=== PATIENT | male | born 1945 | race Caucasian/White ===

== ENCOUNTER 2020-02-27 07:59 | Outpatient (CLI) | payer MEDICARE, SELFPAY ==
--- NOTE | ~2020-02-27 | US_ITS ---
EXAMINATION: US aorta DATE: 02/27/2020 09:12 CDT INDICATION: Abdominal aortic aneurysm TECHNIQUE: Grayscale, color Doppler, and pulsed Doppler images of the aorta and common iliac arteries were obtained. COMPARISON: 02/28/2019 FINDINGS: There is a 3.7 x 3.6 cm infrarenal aortic aneurysm with fusiform appearance, unchanged from prior exa mination. Right common iliac artery measures 1.7 cm. Left common iliac artery measures 1.6 cm. Distal aspect of the left iliac artery measures 2.9 x 2.2 cm. IMPRESSION: 1. Stable fusiform infrarenal abdominal aortic aneurysm measuring 3.7 x 3.6 cm. 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 Reviewed, dictated and finalized at location A.
== END 2020-02-27 08:00 | disposition home or self-care (01) ==
LOC: ANHIMG 08:05
PROVIDERS: PCP Family Medicine; Visit Provider Family Medicine
DX: I71.4 Abdominal aortic aneurysm, without rupture (principal); I72.3 Aneurysm of iliac artery
CPT/HCPCS: 76775

== ENCOUNTER 2021-02-18 08:23 | Outpatient (CLI) | payer MEDICARE, SELFPAY ==
--- NOTE | ~2021-02-18 | US_ITS ---
EXAMINATION: US aorta DATE: 02/18/2021 08:53 INDICATION: Abdominal aortic aneurysm TECHNIQUE: Grayscale, color Doppler, and pulsed Doppler images of the aorta and common iliac arteries were obtained. COMPARISON: 02/27/2020 FINDINGS: Maximum vascular dimensions are as follows: Proximal aorta: 2.9 cm Mid aorta: 2.5 cm Distal aorta: 3.7 cm Right common iliac artery: 2.0 cm Left common iliac artery: 2.7 cm There is a 3.7 x 3.4 cm fusiform infrarenal abdominal aortic aneurysm a 2.7 x 2.2 cm aneurysm of the distal left common iliac artery is also noted. IMPRESSION: 1. Fusiform infrarenal abdominal aortic aneurysm and fusiform left iliac artery aneurysm without sign ificant change Reviewed, dictated and finalized at location A. IMPRESSION: 1. Fusiform infrarenal abdominal aortic aneurysm and fusiform left iliac artery aneurysm without significant change
== END 2021-02-18 08:24 | disposition home or self-care (01) ==
LOC: ANHIMG 08:27
PROVIDERS: PCP Family Medicine; Visit Provider Family Medicine
DX: I71.4 Abdominal aortic aneurysm, without rupture (principal)
CPT/HCPCS: 76775

== ENCOUNTER 2022-02-17 08:49 | Outpatient (CLI) | payer MEDICARE, SELFPAY ==
--- NOTE | ~2022-02-17 | US_ITS ---
EXAMINATION: US aorta DATE: 02/17/2022 09:42 INDICATION: Abdominal aortic aneurysm TECHNIQUE: Grayscale, color Doppler, and pulsed Doppler images of the aorta and common iliac arteries were obtained. COMPARISON: None. FINDINGS: The proximal aorta measures 3.0 cm. The mid aorta measures 2.8 cm. Fusiform infrarenal abdominal aort ic aneurysm measuring up to 3.6 cm in maximal diameter tapering to 3.0 cm at the bifurcation. The rig ht common iliac artery measures 2.0 cm. The left common iliac artery measures 2.0 cm. IMPRESSION: 1. No significant interval change in a fusiform infrarenal abdominal aortic aneurysm measuring up to 3.6 cm in the current study. Reviewed, dictated and finalized at location B. IMPRESSION: 1. No significant interval change in a fusiform infrarenal abdominal aortic ane urysm measuring up to 3.6 cm in the current study.
== END 2022-02-17 08:50 | disposition home or self-care (01) ==
PROVIDERS: PCP Family Medicine; Visit Provider Family Medicine
DX: I71.4 Abdominal aortic aneurysm, without rupture (principal)
CPT/HCPCS: 76775

== ENCOUNTER 2023-02-04 10:14 | Outpatient (CLI) | payer MEDICARE, SELFPAY ==
--- NOTE | ~2023-02-04 | US_ITS ---
US aorta DATE: 02/04/2023 10:58 INDICATION: Abdominal aortic aneurysm follow-up TECHNIQUE: Real-time imaging, color flow imaging of abdominal aortic aneurysm COMPARISON: 02/17/2022 abdominal aortic ultrasound FINDINGS: The examination is limited due to overlying bowel. There is an infrarenal fusiform abdominal aortic aneurysm. The proximal abdominal aorta measures 2.7 x 2.8 x 2.6 cm. Mid abdominal aorta measures 2.3 x 2.2 x 2 cm. Distal abdominal aorta measures 2.5 x 3.4 x 4.2 cm. Proximal right common iliac artery measures 2.0 cm, left proximal common iliac artery 1.7 cm IMPRESSION: Up to approximately 4.2 cm fusiform infrarenal abdominal aortic aneurysm Reviewed, dictated and finalized at Location A. Reviewed, dictated and finalized at location L. IMPRESSION: Up to approximately 4.2 cm fusiform infrarenal abdominal aortic ane urysm
== END 2023-02-04 10:15 | disposition home or self-care (01) ==
PROVIDERS: PCP Family Medicine; Visit Provider Family Medicine
DX: I71.40 Abdominal aortic aneurysm, without rupture, unspecified (principal)
CPT/HCPCS: 76775

== ENCOUNTER 2023-11-15 08:48 | Inpatient (IN) | payer MEDICARE, SELFPAY ==
[2023-11-15] VITALS (15 sets, daily range): BP systolic 101–178; BP diastolic 73–94; PULSE 57–114; RESP 16–24; TEMP 36.4–36.8; O2SAT 94–100; BMI 22.8
--- NOTE | ~2023-11-15 | XR_ITS ---
XR chest 2V DATE: 11/15/2023 09:40 INDICATION: Centralized chest pain. History of COPD, myocardial infarction, heart stent. TECHNIQUE: PA and lateral views COMPARISON: 01/16/2018 two-view chest FINDINGS: Status post sternotomy and mediastinal surgical clips likely due to coronary bypass graft s urgery. Normal heart size. Thoracic aortic calcification. Moderate bilateral hyperinflation, consistent with history of COPD. No hilar or mediastinal enlargement. No pulmonary infiltrate or consolidation or pulmonary mass lesio n is evident. No pulmonary vascular congestion or pleural effusion. Surgical clips, right upper quadrant, likely due to cholecystectomy. Mild thoracic dextroscoliosis. IMPRESSION: Status post CABG Aortic atherosclerosis Moderate hyperinflation consistent with history of COPD Reviewed, dictated and finalized at location B.
--- NOTE | ~2023-11-15 | CT_ITS ---
EXAMINATION: CT chest abdomen pelvis w con DATE: 11/15/2023 18:47 INDICATION: chest and epigastric pain . TECHNIQUE: Computed tomography (CT) of the chest, abdomen, and pelvis was performed with 100 mL Omnip aque-350 intravenous contrast. Automated exposure control and iterative reconstruction technique were employed. The dose-length product was 480.92 mGy-cm. COMPARISON: X-ray chest, same date FINDINGS: CHEST: Thoracic aorta: No significant dilation. No dissection. Moderate arch calcification. Lung parenchyma and airways: Emphysematous change. Multiple bilateral pulmonary nodules, the largest is present in the superior segment of the right lower lobe, measuring 10 mm. Tracheal secretions. Thoracic inlet, axillae and chest wall: No thyroid or soft tissue mass. No axillary lymphadenopathy. Mediastinum: No mass or lymphadenopathy. Heart and pericardium: Normal heart size. No pericardial effusion. Coronary artery calcifications: Moderate. Pleura: No effusion or mass. Thoracic bones: No acute osseous finding in the chest. ABDOMEN/PELVIS: Liver: Normal. Biliary/Gallbladder: Gallbladder is absent. Mild common bile duct dilation, likely secondary to dev cystectomy. Pancreas: No mass or duct dilation. Mild inflammatory stranding at the pancreatic head. Spleen: Normal. Adrenals:No mass. Kidneys: No suspicious mass, obstructing stone, or hydronephrosis. Multiple bilateral simple renal cy sts. Bilateral cortical thinning GI tract: Moderate antral and proximal duodenal wall edema with surrounding inflammatory change/fluid . Mild inflammatory stranding and fluid at the hepatic flexure and in the right paracolic gutter. No small or large bowel dilation. Appendix not confidently visualized. Diverticulosis without diverticul itis. Mesentery/Peritoneum: No ascites, mass, or free air. Retroperitoneum: No mass Atherosclerotic abdominal aortic and/or arterial calcifications. 1.7 x 4.0 s accular infrarenal abdominal aortic aneurysm. Intramural thrombus in the distal aorta. 2.7 cm left il iac aneurysm at the bifurcation. Occluded right internal iliac artery. Pelvis: Moderate bladder wall thickening in a partially distended urinary bladder. Enlarged prostate Soft Tissues: Soft tissues and body wall unremarkable. Abdominopelvic bones: No acute osseous finding in the abdomen/pelvis. IMPRESSION: Multiple pulmonary nodules. Recommend follow-up low-dose noncontrast CT in 3-6 months. Antral gastritis and proximal duodenitis. Inflammatory changes noted at the pancreatic head and hepat ic flexure presumably reactive to the antral and duodenal changes. Saccular infrarenal abdominal aortic and left distal common iliac artery aneurysms. Occluded right in ternal iliac artery Cystitis versus lateral wall thickening from outlet obstruction. Reviewed, dictated and finalized at location K. IMPRESSION: Multiple pulmonary nodules. Recommend follow-up low-dose noncontrast CT in 3-6 months. Antral gastritis and proximal duodenitis. Inflammatory changes noted at the rosas creatic head and hepatic flexure presumably reactive to the antral and duodenal changes. Saccular infrarenal abdominal aortic and left distal common iliac artery ane[place] sms. Occluded right internal iliac artery Cystitis versus lateral wall thickening from outlet obstruction.
--- NOTE | 2023-11-15 08:52 | ECG_ITS ---
Measurements Intervals [place] Rate: 120 P: 69 [place]: 174 QRS: 252 QRSD: 89 T: 71 QT: 298 QTc: 422 Interpretive Statements SINUS TACHYCARDIA RIGHT AXIS DEVIATION PATTERN CONSISTENT WITH PULMONARY DISEASE BASELINE WANDER- AVL, V2, V4-V6 ABNORMAL ECG NO PREVIOUS ECG AVAILABLE FOR COMPARISON Electronically Signed On 11-15-2023 9:01:33 CDT by Jose Ryder D.O.
[2023-11-15] MEDS: ASPIRIN 81 MG CHEWABLE TABLET 324 MG PO (09:18)
[2023-11-15 09:23] LABS: Basophils Absolute Auto 0.1 K/mm3 (0.0-0.1); Basophils Percent Auto 0.5 % (0.2-1.2); Eosinophils Absolute Auto 0.1 K/mm3 (0-0.3); Eosinophils Percent Auto 1.3 % (0-4.4); Hematocrit 45.4 % (42.0-52.0); Hemoglobin 14.9 g/dL (14.0-18.0); Immature Granulocyte Absolute 0.04 K/mm3 (0.00-0.031); Immature Granulocyte Percent A 0.4 % (0-0.5); Lymphocytes Absolute Auto 1.56 K/mm3 (0.9-3.2); Lymphocytes Percent Auto 14.3 % (18.3-44.2); Mean Corpuscular HGB Conc 32.8 g/dl (32-36); Mean Corpuscular Hemoglobin 31.7 pg (26-34); Mean Corpuscular Volume 96.6 fl (80-100); Mean Platelet Volume 11.7 fl (7.4-10.4); Monocytes Percent Auto 8.7 % (2.6-8.5); Neutrophils Absolute Auto 8.2 K/mm3 (1.3-6.7); Neutrophils Percent Auto 74.8 % (45.5-73.1); Platelet Count Result 211 k/mm3 (150-375); Red Cell Distribution Width 13.2 % (11.5-14.5); White Blood Count 10.9 K/mm3 (4.5-10.0)
--- NOTE | 2023-11-15 09:29 | ED.GENADULT ---
HPI - General Adult General Chief complaint: Chest Pain Stated complaint: chest pain Time Seen by Provider: 11/15/23 08:55 History of Present Illness HPI narrative: Christos Tabor is a 78 y/o male with PMHx of Triple bypass/ [place] x2/ three cadiac stents/ HLD/ CAD/ COPD / GERD who presents with reports of having chest heaviness off and on since . He states that he was getting treated for pneumonia about a month ago, and was the best he felt so he went up to his roof to clean his gutters and after he did that he started to feel this chest pressure/ heaviness. He thought it was from over working but the pain has been off and on since then. Reports mild SOB with exertion No recent fever/ no worsening cough. Related Data Home Medications Medication Instructions Recorded Confirmed nitroglycerin 0.4 mg sublingual 0.4 mg sublingual .COMPLEX 01/28/23 11/15/23 tablet aspirin 81 mg chewable tablet 81 mg PO DAILY 07/27/23 11/15/23 (Aspirin Childrens) magnesium oxide 250 mg PO DAILY 07/27/23 11/15/23 mecobalamin (vitamin B12) 2,500 2,500 mcg PO DAILY 07/27/23 11/15/23 mcg chewable tablet Allergies Allergy/AdvReac Type Severity Reaction Status Date / Time levofloxacin Allergy Unknown Verified 11/15/23 09:23 propoxyphene AdvReac Intermediate Nausea and Verified 11/15/23 09:19 Vomiting Review of Systems Review of Systems: CONSTITUTIONAL: Denies fever, chills, or sweats. EYES: Denies visual changes, redness, or discharge. ENT: Denies rhinorrhea, congestion, sore throat, or otalgia. CARDIOVASCULAR: + chest heaviness /pressure that has been off and on for 4 days denies palpitations, or edema. RESPIRATORY: Denies cough or dyspnea. GASTROINTESTINAL: Denies abdominal pain, nausea, vomiting, or diarrhea. GENITOURINARY: Denies dysuria or hematuria. SKIN: Denies rash or itching. MUSCULOSKELETAL: Denies back pain, joint pain, or myalgia. NEUROLOGIC: Denies headache, numbness, dizziness, or weakness. PSYCHIATRIC: Denies anxiety or depression. [facility] Past Medical History Medical History (Updated 11/15/23 @ 14:57 by Tosha Watts PA-C) Abdominal aortic aneurysm, without rupture, unspecified Atherosclerotic heart disease of [place] coronary artery without angina pectoris Chronic obstructive pulmonary disease, unspecified Gastro-esophageal reflux disease without esophagitis Generalized osteoarthritis Hyperlipidemia, unspecified Hypertensive chronic kidney disease with stage 1 through stage 4 chronic kidney disease, or unspecified chronic kidney disease Prediabetes Stage 3b chronic kidney disease Surgical History Surgical History (Updated 11/15/23 @ 14:50 by Tosha Watts PA-C) History of bilateral inguinal hernia repair History of cardiac catheterization History of coronary artery bypass graft x 2 (2009) Left mammary graft to left anterior descending and vein graft to right coronary artery. History of coronary artery stent placement (2003) Stents to anterior descending and circumflex. Family History Family History Sibling Family history of cardiac disorder Mother Family history of kidney disease Other Family history of cardiovascular disease Social History Social History (Updated 11/15/23 @ 14:56 by Tosha Watts PA-C) Social History: Surrogate medical decision maker: Bree Pearson, significant other. Code status: Full code. Smoking status: Former smoker Tobacco type: cigarettes Second hand tobacco smoke exposure: Yes Alcohol intake: never Substance use: never Substance use type: does not use Do You Feel Safe in your Home?: Yes Lack of Transportation: No Lack of Food: Never True Current Housing: I Have Housing Concerned About Future Housing: No Difficulty Paying Gas/Electric Bills: No Difficulty Paying for Meds: No Currently Unemployed: No Education: High School Diploma/GED Difficulty w/
[2023-11-15 09:34] LABS: Alanine Aminotransferase 19 U/L (6-50); Albumin Level 4.4 g/dL (3.5-5.1); Alkaline Phosphatase 84 U/L (38-126); Anion Gap 6 mmol/L (8-16); Aspartate Amino Transferase 24 U/L (17-59); Bilirubin,Total 0.6 mg/dL (0.2-1.3); Blood Urea Nitrogen 35 mg/dL (9-20); Calcium 12.7 mg/dL (8.4-10.2); Carbon Dioxide 30 mmol/L (22-30); Chloride 102 mmol/L (98-107); Estimated CRCL calculation 32 ml/min; Estimated Glomerular Filt Rate 39; Glucose 150 mg/dL (65-110); Lipase 102 U/L (23-300); Potassium 4.4 mmol/L (3.4-5.0); Sodium 138 mmol/L (137-145)
[2023-11-15 09:38] LABS: Prothrombin Time 13.8 Seconds (11.1-14.7)
[2023-11-15 09:39] LABS: Partial Thromboplastin Time 26.9 Seconds (22.3-36.8)
[2023-11-15 09:45] LABS: Troponin I < 0.012 ng/mL (0.000-0.034)
[2023-11-15] MEDS: NITROGLYCERIN SL 0.4 MG TABLET SUBLINGUAL (10:31)
--- NOTE | 2023-11-15 10:40 | PC.NURSE ---
1031: 0.4 mg nitroglycerin sublingual given to pt for 410 chest pain after 324mg ASA did not alleviate chest pain 1036: Pt reports cp to still be a 3-12/07. Pt blood pressure 101/73 after initial dose of nitroglycerin. EDRadha Ha APRN notified and given VORB to not give second dose
--- NOTE | 2023-11-15 11:16 | PC.NURSE ---
Report given to Alisia HERCULES, all questions answered
--- NOTE | 2023-11-15 11:48 | PC.NURSE ---
Selin Trinidad notified patient is having more chest pains, states they go from 3/10 to 7/10 rating. Pt also now complaining of nausea. Awaiting orders.
[2023-11-15] MEDS: ONDANSETRON INJ 4 MG/2 ML VIAL IV PUSH ×2 (12:47→19:55)
[2023-11-15] MEDS: HYDROmorphone HCL INJ (*CRX) 1 MG/ML SYR 0.5 MG IV PUSH ×2 (12:47→17:19)
--- NOTE | 2023-11-15 14:30 | ECG_ITS ---
Measurements Intervals [place] Rate: 85 P: 71 [place]: 173 QRS: 267 QRSD: 90 T: 71 QT: 337 QTc: 403 Interpretive Statements SINUS RHYTHM VENTRICULAR PREMATURE COMPLEX RIGHT AXIS DEVIATION PATTERN CONSISTENT WITH PULMONARY DISEASE BORDERLINE ECG COMPARED TO ECG 11/15/2023 08:54:24 SINUS RHYTHM NOW PRESENT Electronically Signed On 11-15-2023 14:53:15 CDT by Jose Ryder D.O.
--- NOTE | 2023-11-15 14:45 | ADMGEN ---
This patient, Christos Tabor, was admitted to [address] [place] [address] Room 300-01. Patient/family oriented to hospital policies and general routines including ID bracelet, bed and alarms, visiting hours, pain management, procedures, bathroom and other care routines, personal items, smoking policy, room service/diet, and visiting hours. Information on how to activate the Rapid Response Team has been discussed. Patient/Family are encouraged to report perceived risks to care and to ask questions if they do not understand what they are told or what they should do.
--- NOTE | 2023-11-15 14:47 | PM.IMHP ---
H&P: HPI History of Present Illness Date/Time: 11/15/23 16:47 Chief Complaint: Chest pain. Narrative: This is a 78-year-old male with coronary artery disease status and history of myocardial infarction in 2003 status post stent x2 with subsequent 2 vessel coronary artery bypass graft in 2009, 4.2 cm infrarenal abdominal aortic aneurysm on ultrasound in January 2023, hypertension, dyslipidemia, and chronic obstructive pulmonary disease who presented to the emergency department for evaluation of chest pain. The patient provides the following history. He gives a 4 day history of nonradiating, intermittent mid chest heaviness. His symptoms started when he was cleaning gutters on his roof and initially he thought perhaps the chest discomfort was due to over doing it as he had not been very active the previous few weeks due to pneumonia. His symptoms have continued without obvious pattern. The last 2 days he has noticed a significant increase in the amount of heartburn that he has been experiencing and he has been taking Tums quite frequently which helped for a brief period of time. The discomfort does seem to radiate up into the chest as well. His appetite has not been great and he reports that his stomach feels uncomfortable and ?empty.? He has also had some nausea and reports having 1 episode of emesis last evening which he describes as light yellow mucus. He denies blood in the vomitus as well as melena and hematochezia. He also denies fever, chills, sweats, syncope, near syncope, pleuritic pain, palpitations, orthopnea, paroxysmal nocturnal dyspnea, lower extremity edema, and calf pain. Denies and sent in significant alcohol use. In the ED: He was afebrile on arrival with stable vital signs. Labs were significant for a WBC count of 10.9, BUN 35, creatinine 1.70, glucose 150, calcium 12.7, troponin less than 0.012. EKG showed sinus tachycardia with right axis deviation a pattern consistent with pulmonary disease. He was given aspirin 324 mg and 0.4 mg sublingual nitroglycerin and he is being admitted in this setting for close monitoring and further evaluation. Review of Systems Review of Systems: Twelve systems were reviewed and are negative except for as per HPI. [facility] Past Medical History Medical History (Updated 11/15/23 @ 23:56 by Tosha Watts PA-C) Abdominal aortic aneurysm, without rupture, unspecified Atherosclerotic heart disease of [place] coronary artery without angina pectoris Chronic obstructive pulmonary disease, unspecified Gastro-esophageal reflux disease without esophagitis Generalized osteoarthritis Hyperlipidemia, unspecified Hypertensive chronic kidney disease with stage 1 through stage 4 chronic kidney disease, or unspecified chronic kidney disease Prediabetes Stage 3b chronic kidney disease Surgical History Surgical History (Updated 11/15/23 @ 14:50 by Tosha Watts PA-C) History of bilateral inguinal hernia repair History of cardiac catheterization History of coronary artery bypass graft x 2 (2009) Left mammary graft to left anterior descending and vein graft to right coronary artery. History of coronary artery stent placement (2003) Stents to anterior descending and circumflex. Family History Family History Sibling Family history of cardiac disorder Mother Family history of kidney disease Other Family history of cardiovascular disease Social History Social History (Updated 11/15/23 @ 23:53 by Tosha Watts PA-C) Social History: Surrogate medical decision maker: Bree Pearson, significant other. Code status: Full code. Smoking status: Former smoker Tobacco type: cigarettes Second hand tobacco smoke exposure: Yes Alcohol intake: never Substance use: never Substance use type: does not use Do You Feel Safe in your Home?: Yes Lack of Transportation: No Lack of Food: Never True Current Housing: I Have Housing C
[2023-11-15 14:55] LABS: Troponin I < 0.012 ng/mL (0.000-0.034)
--- NOTE | 2023-11-15 17:32 | PC.NURSE ---
Larry ORTEGA notified that patient c/o of nausea and increased abd pain after taking couple bites of dinner. Pain starts in upper abd and moves up to his chest.
[2023-11-15 17:42] LABS: Anion Gap 6 mmol/L (8-16); Blood Urea Nitrogen 34 mg/dL (9-20); Calcium 12.2 mg/dL (8.4-10.2); Carbon Dioxide 30 mmol/L (22-30); Chloride 102 mmol/L (98-107); Estimated CRCL calculation 31 ml/min; Estimated Glomerular Filt Rate 37; Glucose 120 mg/dL (65-110); Potassium 5.3 mmol/L (3.4-5.0); Sodium 138 mmol/L (137-145)
[2023-11-15 17:44] LABS: Magnesium 1.6 mg/dL (1.6-2.3)
[2023-11-15 17:55] LABS: Parathyroid Intact 8.4 pg/mL (7.5-53.5); Troponin I < 0.012 ng/mL (0.000-0.034)
[2023-11-15 18:42] LABS: Vitamin D 25 Hydroxy 78.8 ng/mL
[2023-11-15 18:56] LABS: Thyroid Stimulating Hormone Reflex 0.404 uIU/mL (0.465-4.68)
[2023-11-15 21:31] LABS: Lipase 54 U/L (23-300)
[2023-11-16] VITALS (9 sets, daily range): BP systolic 100–148; BP diastolic 57–83; PULSE 73–94; RESP 12–20; TEMP 36.4–37.3; O2SAT 91–96
[2023-11-16] MEDS: HYDROmorphone HCL INJ (*CRX) 1 MG/ML SYR 0.5 MG IV PUSH ×2 (00:14→05:25)
[2023-11-16] MEDS: PANTOPRAZOLE SODIUM IV 40 MG VIAL IV PUSH ×3 (00:16→19:57)
[2023-11-16] MEDS: METOPROLOL TARTRATE 25 MG TABLET PO ×3 (00:21→19:57)
[2023-11-16] MEDS: SODIUM CHLORIDE 0.9% IV 1,000 ML 100 ML IV CONT ×3 (00:21→20:04)
[2023-11-16 06:40] LABS: Free T4 Free Thyroxine Reflex 1.42 ng/dL (0.78-2.19)
[2023-11-16 07:00] LABS: Hematocrit 39.8 % (42.0-52.0); Hemoglobin 12.7 g/dL (14.0-18.0); Mean Corpuscular HGB Conc 31.9 g/dl (32-36); Mean Corpuscular Hemoglobin 31.4 pg (26-34); Mean Corpuscular Volume 98.5 fl (80-100); Mean Platelet Volume 11.5 fl (7.4-10.4); Platelet Count Result 184 k/mm3 (150-375); Red Blood Count 4.04 M/mm3 (4.6-6.20); Red Cell Distribution Width 13.2 % (11.5-14.5); White Blood Count 9.5 K/mm3 (4.5-10.0)
[2023-11-16 07:04] LABS: Anion Gap 4 mmol/L (8-16); Blood Urea Nitrogen 39 mg/dL (9-20); Calcium 10.9 mg/dL (8.4-10.2); Carbon Dioxide 29 mmol/L (22-30); Chloride 104 mmol/L (98-107); Estimated CRCL calculation 29 ml/min; Estimated Glomerular Filt Rate 35; Glucose 107 mg/dL (65-110); Potassium 5.1 mmol/L (3.4-5.0); Sodium 137 mmol/L (137-145)
--- NOTE | 2023-11-16 07:42 | PM.IMPN ---
Progress Note: A&P Assessment and Plan (1) Epigastric pain: Code(s): R10.13 - Epigastric pain Status: Acute Assessment and Plan: Pain started in the upper abdomen radiated into the chest. CT findings of antral gastritis and duodenitis with reactive inflammation of pancreas head. Cardiology was consulted by the ER. Additionally Gastroenterology was consulted by admitting provider. Currently NPO for GI consult possible EGD. (2) Chest pain: Qualifiers: Chest pain type: unspecified Qualified Code(s): R07.9 - Chest pain, unspecified Code(s): R07.9 - Chest pain, unspecified Status: Acute Assessment and Plan: Cardiology saw patient negative troponins, non-ischemic EKG, telemetry showed sinus rhythm with periodic to slightly frequent asymptomatic PVCs. No further cardiac workup and telemetry discontinued. (3) Hypercalcemia: Code(s): E83.52 - Hypercalcemia Status: Acute Assessment and Plan: Initial calcium 12.7 on arrival, workup is pending as initiated by admitting provider. Calcium is down 10.9 fluids. (4) Chronic kidney disease, stage 3: Code(s): N18.30 - Chronic kidney disease, stage 3 unspecified Status: Chronic Assessment and Plan: apparent baseline estimated GFR 30s to 40s current estimated GFR 35 which is slightly lower than 39 on ER presentation. Patient is on IV fluids while NPO. Avoid significant nephrotoxins when possible. (5) Hypertension: Code(s): I10 - Essential (primary) hypertension Status: Chronic Assessment and Plan: Blood pressure reviewed on 11/15. Continue metoprolol. Hold lisinopril due to ODILIA (6) Coronary artery disease: Code(s): I25.10 - Atherosclerotic heart disease of [place] coronary artery without angina pectoris Status: Chronic Assessment and Plan: Known history CAD prior CABG, continue home medications (7) Chronic obstructive pulmonary disease, unspecified: Qualifiers: COPD type: unspecified COPD Qualified Code(s): J44.9 - Chronic obstructive pulmonary disease, unspecified Code(s): J44.9 - Chronic obstructive pulmonary disease, unspecified Status: Chronic Assessment and Plan: No significant wheezing or dyspnea at this time, continue inhalers Subjective Date/time seen: 11/16/23 07:42 Interval history: Patient was admitted for epigastric pain radiating to the chest concern for ulcers but Cardiology was also consulted due to chest pain. Cardiac workup negative to date and no further cardiac workup recommended by Cardiology at this time. Telemetry has been stable sinus rhythm with some PVCs. Discontinue telemetry monitoring. Patient is NPO for GI consult possible EGD. Labs show decreased renal function as well as elevated calcium elevated phosphorus and elevated potassium. Patient is on IV fluids due to NPO status and calcium is improving with this treatment. Renal function not yet improving. Patient still complaining epigastric discomfort. Review of CT imaging shows there is pancreas inflammation likely reactive to nearby antral gastritis and proximal duodenitis. Added hepatic panel and lipase to morning labs these were normal. Additional imaging findings shows known aortic aneurysm with intramural thrombus along with left distal common iliac artery aneurysm and occluded right internal iliac artery. Additionally there are multiple renal cysts present. No blood thinners at this time due to gastritis / duodenitis and possible EGD after GI consult. Review of Systems Review of Systems: All systems reviewed & are unremarkable except as noted in HPI and below Exam Narrative: General: Nontoxic-appearing gentleman sitting upright on the edge of the bed in no acute distress. HEENT: PERRL, EOMI. Sclera anicteric. Tacky mucous membranes. Neck: Supple. no JVD. Respiratory: Respirations are nonlabored and he is speaking in full sen
[2023-11-16] MEDS: ENOXAPARIN 40 MG/0.4 ML SYRINGE SUB-Q (09:26)
[2023-11-16] MEDS: ROSUVASTATIN 20 MG TABLET 40 MG PO (09:28)
[2023-11-16] MEDS: FLUTICASONE/SALMETEROL 230-21 MCG INHALER 1 PUFF 2 PUFF INHALATION ×2 (09:40→21:01)
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
[2023-11-16 11:54] LABS: Alanine Aminotransferase 15 U/L (6-50); Albumin Level 3.6 g/dL (3.5-5.1); Alkaline Phosphatase 73 U/L (38-126); Aspartate Amino Transferase 18 U/L (17-59); Bilirubin,Total 0.3 mg/dL (0.2-1.3); Lipase 69 U/L (23-300)
--- NOTE | 2023-11-16 14:07 | WPDGICN ---
Assessment and Plan Assessment and plan (1) Epigastric pain: Code(s): R10.13 - Epigastric pain Status: Acute Assessment and Plan: -Chest/Abdomen/Pelvis CTA shows multiple pulmonary nodules, antral gastritis and proximal duodenitis. There is inflammatory changes noted at the pancreatic head and hepatic flexure presumably reactive to the antral and duodenal changes. ? PUD -will arrange for EGD tomorrow. Never had EGD -pantoprazole 40 mg BID (2) Gastro-esophageal reflux disease without esophagitis: Code(s): K21.9 - Gastro-esophageal reflux disease without esophagitis Status: Acute (3) Chest pain: Qualifiers: Chest pain type: unspecified Qualified Code(s): R07.9 - Chest pain, unspecified Code(s): R07.9 - Chest pain, unspecified Status: Acute Assessment and Plan: Has atypical chest pain with abdominal pain. Negative troponins x 3. EKGs with sinus rhythm without ischemic changes. CXR with moderate hyperinflation consistent with COPD, however, no acute findings. Chest/Abdomen/Pelvis CTA shows multiple pulmonary noduels, antral gastritis and proximal duodenitis. There is inflammatory changes noted at the pancreatic head and hepatic flexure presumably reactive to the antral and duodenal changes. No additional cardiac workup at this time. (4) CAD (coronary artery disease): Qualifiers: Associated angina: unspecified whether angina present Coronary Disease-Associated Artery/Lesion type: bypass graft, other Qualified Code(s): I25.810 - Atherosclerosis of coronary artery bypass graft(s) without angina pectoris Code(s): I25.10 - Atherosclerotic heart disease of [place] coronary artery without angina pectoris Status: Acute Assessment and Plan: managed by cardiology (5) Hypertension: Code(s): I10 - Essential (primary) hypertension Status: Chronic (6) Hyperlipidemia, unspecified: Qualifiers: Hyperlipidemia type: mixed hyperlipidemia Qualified Code(s): E78.2 - Mixed hyperlipidemia Code(s): E78.5 - Hyperlipidemia, unspecified Status: Chronic (7) Chronic obstructive pulmonary disease, unspecified: Qualifiers: COPD type: unspecified COPD Qualified Code(s): J44.9 - Chronic obstructive pulmonary disease, unspecified Code(s): J44.9 - Chronic obstructive pulmonary disease, unspecified Status: Chronic Assessment and Plan: Management as per primary team. (8) Stage 3b chronic kidney disease: Code(s): N18.32 - Chronic kidney disease, stage 3b Status: Acute Assessment and Plan: Renal function is stable. GI Consult Note Consult date/time: 11/16/23 14:07 Reason for consult: epigastric pain, suspect ulcer HPI: Christos Tabor is a 78 year old male was admitted for epigastric pain radiating to the chest. States epigastric pain started evening after he had spent the afternoon cleaning out his gutters. States pain came on suddenly and radiated up to his chest area. Reports lack of appetite after symptoms started. Pain was similar to previous DC and after 5 days off no improvement, he presented to [place] [facility] for further evaluation. Cardiac work-up include negative troponins x 3. EKGs with sinus rhythm without ischemic changes. CXR with moderate hyperinflation consistent with COPD, however, no acute findings. Chest/Abdomen/Pelvis CTA shows multiple pulmonary nodules, antral gastritis and proximal duodenitis. There is inflammatory changes noted at the pancreatic head and hepatic flexure presumably reactive to the antral and duodenal changes. Lipase and LFTs are within normal limits. He report a history of acid reflux and has been treated with [id number] PPIs for many years. Approximately 5 years ago he switched to Pepcid 40 mg b.i.d. as he felt it worked better for him. States reflux symptoms are well controlled as long as he takes his medication. He has never had
[2023-11-16] MEDS: ACETAMINOPHEN 325 MG TABLET 650 MG PO (17:18)
[2023-11-16] MEDS: ONDANSETRON INJ 4 MG/2 ML VIAL IV PUSH (17:29)
--- NOTE | 2023-11-16 18:33 | PC.NURSE ---
On 11/16/23, the RETAIL SELLING SPECIALIST, MONICA LACEY, provided care and completed [facility] documentation on this patient. I have reviewed the RETAIL SELLING SPECIALIST's documentation and agree with the findings.
[2023-11-17] VITALS (7 sets, daily range): BP systolic 108–132; BP diastolic 56–62; PULSE 67–74; RESP 14–24; TEMP 36.3–36.9; O2SAT 94–99
[2023-11-17] MEDS: ACETAMINOPHEN 325 MG TABLET 650 MG PO (01:42)
[2023-11-17] MEDS: ONDANSETRON INJ 4 MG/2 ML VIAL IV PUSH (01:42)
[2023-11-17] MEDS: SODIUM CHLORIDE 0.9% IV 1,000 ML 100 ML IV CONT (05:09)
[2023-11-17] MEDS: FLUTICASONE/SALMETEROL 230-21 MCG INHALER 1 PUFF 2 PUFF INHALATION (07:00)
[2023-11-17 07:17] LABS: Basophils Percent Auto 0.6 % (0.2-1.2); Eosinophils Absolute Auto 0.2 K/mm3 (0-0.3); Eosinophils Percent Auto 2.2 % (0-4.4); Hematocrit 33.4 % (42.0-52.0); Hemoglobin 10.6 g/dL (14.0-18.0); Immature Granulocyte Absolute 0.04 K/mm3 (0.00-0.031); Immature Granulocyte Percent A 0.6 % (0-0.5); Lymphocytes Absolute Auto 0.83 K/mm3 (0.9-3.2); Lymphocytes Percent Auto 12.4 % (18.3-44.2); Mean Corpuscular HGB Conc 31.7 g/dl (32-36); Mean Corpuscular Hemoglobin 31.5 pg (26-34); Mean Corpuscular Volume 99.4 fl (80-100); Mean Platelet Volume 11.6 fl (7.4-10.4); Monocytes Absolute Auto 0.6 K/mm3 (0.1-0.6); Monocytes Percent Auto 8.7 % (2.6-8.5); Neutrophils Percent Auto 75.5 % (45.5-73.1); Platelet Count Result 134 k/mm3 (150-375); Red Blood Count 3.36 M/mm3 (4.6-6.20); Red Cell Distribution Width 13.1 % (11.5-14.5); White Blood Count 6.7 K/mm3 (4.5-10.0)
[2023-11-17 07:42] LABS: Albumin Level 3.2 g/dL (3.5-5.1); Anion Gap 4 mmol/L (8-16); Blood Urea Nitrogen 42 mg/dL (9-20); Calcium 8.9 mg/dL (8.4-10.2); Carbon Dioxide 26 mmol/L (22-30); Chloride 108 mmol/L (98-107); Estimated CRCL calculation 32 ml/min; Estimated Glomerular Filt Rate 39; Glucose 82 mg/dL (65-110); Magnesium 1.7 mg/dL (1.6-2.3); Phosphorus 2.9 mg/dL (2.5-4.5); Potassium 4.1 mmol/L (3.4-5.0); Sodium 138 mmol/L (137-145)
--- NOTE | 2023-11-17 08:03 | PM.IMPN ---
Subjective Date/time seen: 11/17/23 08:03 Objective Data Vital Signs Vital Signs: Vital Signs - 24 hr 11/16/23 09:24 11/16/23 09:46 11/16/23 09:20 Temperature Pulse Rate 92 Respiratory Rate Blood Pressure Pulse Oximetry 91 Oxygen Delivery Room Air Room Air 11/16/23 14:00 11/16/23 21:04 11/16/23 21:04 Temperature 36.7 C Pulse Rate 90 83 Respiratory Rate 16 20 Blood Pressure 100/57 L Pulse Oximetry 96 93 Oxygen Delivery Room Air 11/16/23 21:36 11/16/23 20:00 11/17/23 05:46 Temperature 37.3 C 36.9 C Pulse Rate 73 68 Respiratory Rate 12 14 Blood Pressure 114/60 108/58 L Pulse Oximetry 93 94 Oxygen Delivery Room Air 11/17/23 07:00 11/17/23 07:00 Temperature Pulse Rate 71 71 Respiratory Rate 18 18 Blood Pressure Pulse Oximetry 95 Oxygen Delivery Room Air Intake/Output Intake/Output: Intake & Output 11/14/23 11/15/23 11/16/23 11/17/23 23:59 23:59 23:59 23:59 Intake Total 800 2281.7 1408.3 Output Total 600 300 Balance 800 1681.7 1108.3 Meds/Results Medications: Active Medications Generic Name Dose Route Start Last Admin Trade Name Freq PRN Reason Stop Dose Admin Acetaminophen 650 mg 11/15/23 15:08 11/17/23 01:42 Acetaminophen 325 Mg Tablet PO 650 mg Q6H PRN Administration Fever Acetaminophen 650 mg 11/16/23 09:46 11/16/23 17:18 Acetaminophen 325 Mg Tablet PO 650 mg Q4H PRN Administration Pain 1-7 Albuterol 1 puff 11/16/23 00:02 Albuterol Sulfate (*Sp) Aerosol 1 Puff INHALATION Q4H PRN shortness of breath or wheezing Hydromorphone HCl 0.5 mg 11/15/23 11:48 11/16/23 05:25 Hydromorphone Hcl Inj (*Crx) 1 Mg/Ml Syr IV PUSH 0.5 mg Q4HR PRN Administration Chest Pain Sodium Chloride 1,000 mls @ 100 mls/hr 11/16/23 00:05 11/17/23 05:09 Normal Saline Iv IV CONT 100 mls/hr .Q10H GREG Administration Metoprolol Tartrate 25 mg 11/16/23 00:15 11/16/23 19:57 Metoprolol Tartrate 25 Mg Tablet PO 25 mg Q12HR GREG Administration Ondansetron HCl 4 mg 11/15/23 11:48 11/17/23 01:42 Ondansetron Inj 4 Mg/2 Ml Vial IV PUSH 4 mg Q6HR PRN Administration Nausea And Vomiting Pantoprazole Sodium 40 mg 11/16/23 21:00 11/16/23 19:57 Pantoprazole Sodium Iv 40 Mg Vial IV PUSH 40 mg Q12HR GREG Administration Rosuvastatin Calcium 40 mg 11/16/23 09:00 11/16/23 09:28 Rosuvastatin 20 Mg Tablet PO 40 mg DAILY GREG Administration Fluticasone/Salmeterol 2 puff 11/16/23 08:00 11/17/23 07:00 Fluticasone/Salmeterol 230-21 Mcg Inhaler 1 Puff INHALATION 2 puff Q12HRT GREG Administration Radiology Results: ITS Impressions Chest X-Ray 11/15/23 09:48 IMPRESSION: Status post CABG Aortic atherosclerosis Moderate hyperinflation consistent with history of COPD Chest/Abdomen/Pelvis CT 11/15/23 18:57 IMPRESSION: Multiple pulmonary nodules. Recommend follow-up low-dose noncontrast CT in 3-6 months. Antral gastritis and proximal duodenitis. Inflammatory changes noted at the pancreatic head and hepatic flexure presumably reactive to the antral and duodenal changes. Saccular infrarenal abdominal aortic and left distal common iliac artery aneurysms. Occluded right internal iliac artery Cystitis versus lateral wall thickening from outlet obstruction. Labs Labs: Laboratory Results - last 24 hr 11/15/23 11/16/23 11/17/23 17:07 06:09 06:27 WBC 6.7 RBC 3.36 L Hgb 10.6 L Hct 33.4 L MCV 99.4 MCH 31.5 MCHC 31.7 L RDW 13.1 Plt Count 134 L MPV 11.6 H Immature Gran % (Auto) 0.6 H Neut % (Auto) 75.5 H Lymph % (Auto) 12.4 L [place] % (Auto) 8.7 H Eos % (Auto) 2.2 Baso % (Auto) 0.6 Lymph # (Auto) 0.83 L [place] # (Auto) 0.6 Eos # (Auto) 0.2 Baso # (Auto) 0.0 Abs Immat Gran (auto) 0.04 H Absolute Neuts (auto) 5.0 Absolute Nucleated RBC 0.000 Nucleated RBC % 0.0
[2023-11-17] MEDS: PANTOPRAZOLE SODIUM IV 40 MG VIAL IV PUSH (09:05)
[2023-11-17] MEDS: ROSUVASTATIN 20 MG TABLET 40 MG PO (09:05)
[2023-11-17] MEDS: METOPROLOL TARTRATE 25 MG TABLET PO (09:05)
[2023-11-17] MEDS: LACTATED RINGERS 1,000 ML 150 ML IV CONT (11:12)
--- NOTE | 2023-11-17 11:36 | WPDANESEPPF ---
Anes - Initial Pre Proc Eval Procedure: Operation Date: 11/17/23 16:00 Proposed Procedures p Esophagogastroduodenoscopy - Elbert Méndez MD Date/Time: 11/17/23 11:36 Surgeon: Edwin Trinidad MD Pre Op Diagnosis: Chest Pain Patient Data Age: 78 Gender: M Height: 1.75 m Weight: 69.2 kg Last Vital Signs Temp 97.4 F L 11/17/23 11:10 Pulse 70 11/17/23 11:10 Resp 18 11/17/23 11:10 BP 117/62 11/17/23 11:10 Pulse Ox 95 11/17/23 11:10 O2 Del Method Room Air 11/17/23 11:10 Allergies Allergy/AdvReac Type Severity Reaction Status Date / Time levofloxacin Allergy Unknown Verified 11/17/23 11:09 propoxyphene AdvReac Intermediate Nausea and Verified 11/17/23 11:09 Vomiting Home Medications Medication Instructions Recorded Confirmed Type albuterol sulfate 90 mcg/actuation 1 inh inhalation Q4H PRN shortness 12/29/22 11/15/23 Rx aerosol inhaler of breath or wheezing #6.7 grams nitroglycerin 0.4 mg sublingual 0.4 mg sublingual .COMPLEX 01/28/23 11/15/23 History tablet aspirin 81 mg chewable tablet 81 mg PO DAILY 07/27/23 11/15/23 History (Aspirin Childrens) magnesium oxide 250 mg PO DAILY 07/27/23 11/15/23 History mecobalamin (vitamin B12) 2,500 2,500 mcg PO DAILY 07/27/23 11/15/23 History mcg chewable tablet Advair HFA 230 mcg-21 2 puff inhalation BID #12 grams 08/31/23 11/15/23 Rx mcg/actuation aerosol inhaler (fluticasone propion-salmeterol) metoprolol tartrate 25 mg tablet 25 mg PO BID #200 tabs 09/01/23 11/15/23 Rx rosuvastatin 40 mg tablet 40 mg PO DAILY #100 tabs 09/01/23 11/15/23 Rx lisinopril 2.5 mg tablet 2.5 mg PO DAILY #90 tabs 09/17/23 11/15/23 Rx famotidine 40 mg tablet 40 mg PO BID #180 tabs 09/24/23 11/15/23 Rx Laboratory Tests 11/16/23 11/17/23 11/17/23 06:09 06:21 06:27 WBC 6.7 K/mm3 (4.5-10.0) RBC 3.36 L M/mm3 (4.6-6.20) Hgb 10.6 L g/dL (14.0-18.0) Hct 33.4 L % (42.0-52.0) MCV 99.4 fl (80-100) MCH 31.5 pg (26-34) MCHC 31.7 L g/dl (32-36) RDW 13.1 % (11.5-14.5) Plt Count 134 L k/mm3 (150-375) MPV 11.6 H fl (7.4-10.4) Immature Gran % (Auto) 0.6 H % (0-0.5) Neut % (Auto) 75.5 H % (45.5-73.1) Lymph % (Auto) 12.4 L % (18.3-44.2) [place] % (Auto) 8.7 H % (2.6-8.5) Eos % (Auto) 2.2 % (0-4.4) Baso % (Auto) 0.6 % (0.2-1.2) Lymph # (Auto) 0.83 L K/mm3 (0.9-3.2) [place] # (Auto) 0.6 K/mm3 (0.1-0.6) Eos # (Auto) 0.2 K/mm3 (0-0.3) Baso # (Auto) 0.0 K/mm3 (0.0-0.1) Abs Immat Gran (auto) 0.04 H K/mm3 (0.00-0.031) Absolute Neuts (auto) 5.0 K/mm3 (1.3-6.7) Absolute Nucleated RBC 0.000 K/mm3 (0.0-0.012) Nucleated RBC % 0.0 % (0.0-0.2) Sodium 138 mmol/L (137-145) Potassium 4.1 mmol/L (3.4-5.0) Chloride 108 H mmol/L (98-107) Carbon Dioxide 26 mmol/L (22-30) Anion Gap 4 L mmol/L (8-16) BUN 42 H mg/dL (9-20) Creatinine 1.70 H mg/dL (0.7-1.3) Estim Creat Clear Calc 32 ml/min Estimated GFR 39 L (59 - ) Glucose 82 mg/dL (65-110) Calcium 8.9 mg/dL (8.4-10.2) Phosphorus 2.9 mg/dL (2.5-4.5) Magnesium 1.7 mg/dL (1.6-2.3) Iron 59 ug/dL (49-181) TIBC Pending % Saturation Pending Ferritin Pending Total Bilirubin 0.3 mg/dL (0.2-1.3) Direct Bilirubin 0.0 mg/dL (0-0.3) AST 18 U/L (17-59) ALT 15 U/L (6-50) Alkaline Phosphatase 73 U/L (38-126) Total Protein 6.0 L g/dL (6.3-8.2) Albumin 3.6 g/dL 3.2 L g/dL (3.5-5.1) (3.5-5.1) Lipase 69 U/L (23-300) Vitamin B12 Pending Folate P
--- NOTE | 2023-11-17 12:20 | PM.DS ---
DS: Admitting Diagnosis Discharge Date 11/17/2023 Admitting Diagnosis epigastric pain, chest pain, hypercalcemia, CKD stage 3, HTN, CAD, COPD DS: Discharge Diagnosis Discharge Diagnosis (1) Epigastric pain: Code(s): R10.13 - Epigastric pain Status: Resolved (2) Chest pain: Qualifiers: Chest pain type: unspecified Qualified Code(s): R07.9 - Chest pain, unspecified Code(s): R07.9 - Chest pain, unspecified Status: Resolved (3) Hypercalcemia: Code(s): E83.52 - Hypercalcemia Status: Resolved (4) Chronic kidney disease, stage 3: Code(s): N18.30 - Chronic kidney disease, stage 3 unspecified Status: Chronic (5) Hypertension: Code(s): I10 - Essential (primary) hypertension Status: Chronic (6) Coronary artery disease: Code(s): I25.10 - Atherosclerotic heart disease of [place] coronary artery without angina pectoris Status: Chronic (7) Chronic obstructive pulmonary disease, unspecified: Qualifiers: COPD type: unspecified COPD Qualified Code(s): J44.9 - Chronic obstructive pulmonary disease, unspecified Code(s): J44.9 - Chronic obstructive pulmonary disease, unspecified Status: Chronic (8) Gastric ulcer: Code(s): K25.9 - Gastric ulcer, unspecified as acute or chronic, without hemorrhage or perforation Status: Acute (9) Gastritis and duodenitis: Code(s): K29.90 - Gastroduodenitis, unspecified, without bleeding Status: Acute (10) Duodenal ulcer: Code(s): K26.9 - Duodenal ulcer, unspecified as acute or chronic, without hemorrhage or perforation Status: Acute DS: Summary Hospital Course Hospital Course: This is a 78 year old male patient admitted due to chest pain, epigastric pain and hypercalcemia. He saw Cardiology who reviewed EKGs, negative troponin and telemetry and decided that no further ischemic workup required as imaging shows inflammation of stomach, duodenum and pancreas and symptoms are consistent with GI nature. Patient underwent EGD today which showed gastric and duodenal ulcers that are non-bleeding. Provided that patient eats/drinks well this afternoon he will be discharged with prescriptions for pantoprazole BID and instructions of no NSAIDs. He will need to follow up for 4 month repeat EGD to check for healing. RN reports patient ate lunch and tolerated well. Discharged in stable condition. Status at Discharge Cognitive/behavioral status at discharge: awake, alert, oriented and pleasant Functional status at discharge: independent ambulation Overall status at discharge: patient is progressing back to baseline Time Spent with Patient Time attestation: Total time spent providing and/or coordinating discharge services: 40 minutes Time spent: Greater than 30 minutes Exam Narrative: General: Nontoxic-appearing gentleman sitting upright on the edge of the bed in no acute distress. HEENT: PERRL, EOMI. Sclera anicteric. Moist mucous membranes. Neck: Supple. no JVD. Respiratory: Respirations are nonlabored and he is speaking in full sentences. Lung sounds are a bit diminished but are otherwise clear to auscultation. Cardiovascular: Regular rate and rhythm with S1-S2. Chest: No tenderness to palpation over the chest wall. Gastrointestinal: Abdomen is soft and nondistended with positive bowel sounds. He is minimally tender to palpation LLQ. No guarding or rebound tenderness. Skin: Warm and dry. Extremities: No cyanosis, clubbing, or edema. Radial pulses 2+. Pedal pulses are diminished and difficult to palpate; posterior tibialis pulses palpated bilaterally. Normal capillary refill. Neurological: Alert. Cranial nerves 2-12 are grossly intact. No gross focal deficits to casual conversation. Psychiatric: Pleasant and cooperative with normal mood and affect. Judgment and insight intact. DS: Data Data Completed and Pending Pending studies at discharge: Pending at
[2023-11-18 14:41] LABS: Alpha 1 Globulin 0.4 g/dL (0.2-0.3); Alpha 2 Globulin 0.8 g/dL (0.5-0.9); Beta 1 Globulin 0.4 g/dL (0.4-0.6); Gamma Globulin 0.8 g/dL (0.8-1.7); Protein, Total 6.8 g/dL (6.1-8.1)
[2023-11-19 12:12] LABS: Vitamin D 1,25 (OH)2 Total 18 pg/mL (18-72); Vitamin D2 1,25 (OH)2 <8 pg/mL; Vitamin D3 1,25 (OH)2 18 pg/mL
[2023-11-19 13:06] LABS: Iron 58 ug/dL (49-181)
[2023-11-19 13:17] LABS: Percent Iron Saturation 24 % (20-50)
[2023-11-19 14:31] LABS: Folic Acid 3.9 ng/mL (2.76->20); Vitamin B12 > 1000.0 pg/mL (239-931)
[2023-11-25 15:25] LABS: Creatinine, Random Urine 109 mg/dL (20-320); Total Protein/Creatinine Ratio 156 mg/g creat (25-148)
== END 2023-11-17 14:20 | disposition home or self-care (01) | DRG 384 ==
LOC: ANHED 10:37 → ANH3MEDSUR 13:45
PROVIDERS: Emergency Medicine; Internal Medicine Gastroenterology; Physician Assistant; Admitting Provider Internal Medicine; Emergency Provider Nurse Practitioner Family; PCP Family Medicine; Visit Provider Nurse Practitioner
PROC: 0DJ08ZZ Inspection of Upper Intestinal Tract, Via Natural or Artificial Opening Endoscopic (ICD-10-PCS; CPT 43235; principal; 2023-11-17 16:00)
DX: K25.9 Gastric ulcer, unspecified as acute or chronic, without hemorrhage or perforation (principal); K26.9 Duodenal ulcer, unspecified as acute or chronic, without hemorrhage or perforation; K29.60 Other gastritis without bleeding; R07.9 Chest pain, unspecified; I25.10 Atherosclerotic heart disease of native coronary artery without angina pectoris; I71.40 Abdominal aortic aneurysm, without rupture, unspecified; I12.9 Hypertensive chronic kidney disease with stage 1 through stage 4 chronic kidney disease, or unspecified chronic kidney disease; N18.32 Chronic kidney disease, stage 3b; J44.9 Chronic obstructive pulmonary disease, unspecified; E83.52 Hypercalcemia; E78.5 Hyperlipidemia, unspecified; K44.9 Diaphragmatic hernia without obstruction or gangrene; K21.9 Gastro-esophageal reflux disease without esophagitis; M15.9 Polyosteoarthritis, unspecified; R91.8 Other nonspecific abnormal finding of lung field; R73.03 Prediabetes; Z79.82 Long term (current) use of aspirin; I25.2 Old myocardial infarction; Z95.1 Presence of aortocoronary bypass graft; Z95.5 Presence of coronary angioplasty implant and graft; Z87.891 Personal history of nicotine dependence
CPT/HCPCS: 36415; 71046; 71260; 74177; 80048; 80053; 80069; 80076; 82306; 82310; 82330; 82570; 82607; 82652; 82728; 82746; 83519; 83540; 83550; 83690; 83735; 83970; 84100; 84155; 84156; 84165; 84166; 84439; 84443; 84480; 84484; 85025; 85027; 85610; 85730; 86334; 86335; 87081; 88305; 93005; 94640; 96372; 96375; 96376; 99285; A9270; C9113; G0378; J1170; J1650; J2405; J2704; J7030; J7120; Q9967

== ENCOUNTER 2024-02-17 09:52 | Outpatient (CLI) | payer MEDICARE, SELFPAY ==
--- NOTE | ~2024-02-17 | US_ITS ---
EXAMINATION: US aorta DATE: 02/17/2024 11:03 INDICATION: Abdominal aortic aneurysm on prior CT TECHNIQUE: Grayscale, color Doppler, and pulsed Doppler images of the aorta and common iliac arteries were obtained. COMPARISON: 02/04/[address] dated 11/15/2023 FINDINGS: The proximal aorta measures 2.5 cm AP. The mid aorta measures 3.6 cm. The distal aorta measures 3.1 c m. The right common iliac artery measures 1.9 cm. The left common iliac artery measures 1.5 cm. IMPRESSION: 1. 3.6 cm fusiform infrarenal abdominal aortic aneurysm. 2. Ectatic right common iliac artery measuring 1.9 cm. Reviewed, dictated and finalized at location A.
== END 2024-02-17 09:53 | disposition home or self-care (01) ==
LOC: ANHIMG 09:52
PROVIDERS: PCP Family Medicine; Visit Provider Family Medicine
DX: I71.40 Abdominal aortic aneurysm, without rupture, unspecified (principal)
CPT/HCPCS: 76775

== ENCOUNTER 2024-03-14 02:25 | Day surgery (SDC) | payer MEDICARE, SELFPAY ==
[2024-02-28 13:33] VITALS: BMI 23.6
[2024-03-14 06:13] VITALS: BP 135/65; PULSE 82; RESP 18; TEMP 36.2; O2SAT 95; BMI 22.0
[2024-03-14] MEDS: LACTATED RINGERS 1,000 ML 150 ML IV CONT (06:23)
--- NOTE | 2024-03-14 06:45 | WPDANESEPPF ---
Anes - Initial Pre Proc Eval Procedure: Operation Date: 03/14/24 07:30 Proposed Procedures p Esophagogastroduodenoscopy - Elbert Méndez MD Date/Time: 03/14/24 06:45 Surgeon: Elbert Méndez MD Pre Op Diagnosis: Gastric ulcer, w/o hemorrhage Patient Data Age: 78 Gender: M Height: 1.75 m Weight: 67.6 kg Last Vital Signs Temp 97.2 F L 03/14/24 06:13 Pulse 82 03/14/24 06:13 Resp 18 03/14/24 06:13 BP 135/65 03/14/24 06:13 Pulse Ox 95 03/14/24 06:13 O2 Del Method Room Air 03/14/24 06:13 Allergies Allergy/AdvReac Type Severity Reaction Status Date / Time levofloxacin Allergy Unknown Verified 03/14/24 06:12 propoxyphene AdvReac Intermediate Nausea and Verified 03/14/24 06:12 Vomiting Home Medications Medication Instructions Recorded Confirmed Type albuterol sulfate 90 mcg/actuation 1 inh inhalation Q4H PRN shortness 12/29/22 03/14/24 Rx aerosol inhaler of breath or wheezing #6.7 grams nitroglycerin 0.4 mg sublingual 0.4 mg sublingual .COMPLEX 01/28/23 03/14/24 History tablet aspirin 81 mg chewable tablet 81 mg PO DAILY 07/27/23 03/14/24 History (Aspirin Childrens) magnesium oxide 250 mg PO DAILY 07/27/23 03/14/24 History mecobalamin (vitamin B12) 2,500 2,500 mcg PO DAILY 07/27/23 03/14/24 History mcg chewable tablet metoprolol tartrate 25 mg tablet 25 mg PO BID #200 tabs 09/01/23 03/14/24 Rx rosuvastatin 40 mg tablet 40 mg PO DAILY #100 tabs 09/01/23 03/14/24 Rx lisinopril 2.5 mg tablet 2.5 mg PO DAILY #90 tabs 09/17/23 03/14/24 Rx famotidine 40 mg tablet 40 mg PO BID #180 tabs 09/24/23 03/14/24 Rx fluticasone 250 mcg-salmeterol 50 1 inh inhalation BID #60 ea 12/23/23 03/14/24 Rx mcg/dose blistr powdr for inhalation (Advair Diskus) pantoprazole 40 mg tablet,delayed 40 mg PO DAILY #90 tabs 02/03/24 03/14/24 Rx release ascorbic acid (vitamin C) 125 mg 125 mg PO DAILY 02/29/24 03/14/24 History chewable tablet (Vitamin C) cholecalciferol (vitamin D3) 25 25 mcg PO DAILY 02/29/24 03/14/24 History mcg (1,000 unit) capsule (Vitamin D3) vitamin E 30 unit capsule 1 unit PO DAILY 02/29/24 03/14/24 History Patient hx anesthesia problems: other (Pt reports bruising around his gum/post from prev bite block. ) Family hx anesthesia problems: none Results Review: All pre-operative results and documents have been reviewed as part of the pre-operative evaluation. [facility] Past Medical History Medical History Abdominal aortic aneurysm, without rupture, unspecified Atherosclerotic heart disease of [place] coronary artery without angina pectoris Chronic obstructive pulmonary disease, unspecified Duodenal ulcer Epigastric pain Gastro-esophageal reflux disease without esophagitis Generalized osteoarthritis Hyperlipidemia, unspecified Hypertensive chronic kidney disease with stage 1 through stage 4 chronic kidney disease, or unspecified chronic kidney disease Prediabetes Stage 3b chronic kidney disease Surgical History Surgical History History of bilateral inguinal hernia repair History of cardiac catheterization History of coronary artery bypass graft x 2 (2009) Left mammary graft to left anterior descending and vein graft to right coronary artery. History of coronary artery stent placement (2003) Stents to anterior descending and circumflex. Family History Family History Sibling Family history of cardiac disorder Mother Family history of kidney disease Other Family history of cardiovascular disease Social History Social History Social History: Surrogate medical decision maker: Bree Pearson, significant other. Code status: Full code. Smoking status: Former smoker Tobacco type: ci
--- NOTE | 2024-03-14 07:34 | PM.HPGS ---
History of Present Illness History of Present Illness Consent: Risks, benefits, and alternatives have been discussed and questions answered. Patient agrees to proceed with procedure. Chief complaint: Gastric ulcer, w/o hemorrhage Narrative: Christos Tabor is a 78 year old male with duodenal ulcer and ulcerative gastritis 10/2023, here to assess healing, doing much better with ppi Review of Systems Review of Systems: All systems reviewed & are unremarkable except as noted in HPI and below PMFSH Past Medical History Medical History Abdominal aortic aneurysm, without rupture, unspecified Atherosclerotic heart disease of [place] coronary artery without angina pectoris Chronic obstructive pulmonary disease, unspecified Duodenal ulcer Epigastric pain Gastro-esophageal reflux disease without esophagitis Generalized osteoarthritis Hyperlipidemia, unspecified Hypertensive chronic kidney disease with stage 1 through stage 4 chronic kidney disease, or unspecified chronic kidney disease Prediabetes Stage 3b chronic kidney disease Surgical History Surgical History History of bilateral inguinal hernia repair History of cardiac catheterization History of coronary artery bypass graft x 2 (2009) Left mammary graft to left anterior descending and vein graft to right coronary artery. History of coronary artery stent placement (2003) Stents to anterior descending and circumflex. Family History Family History Sibling Family history of cardiac disorder Mother Family history of kidney disease Other Family history of cardiovascular disease Social History Social History Social History: Surrogate medical decision maker: Bree Pearson, significant other. Code status: Full code. Smoking status: Former smoker Tobacco type: cigarettes Second hand tobacco smoke exposure: Yes Alcohol intake: never Substance use: never Substance use type: does not use Do You Feel Safe in your Home?: Yes Lack of Transportation: No Lack of Food: Never True Current Housing: I Have Housing Concerned About Future Housing: No Difficulty Paying Gas/Electric Bills: No Difficulty Paying for Meds: No Currently Unemployed: No Education: Master's Degree or Higher Difficulty w/ Childcare or Family Care: No Living arrangements: with family Additional living arrangements comments: Lives with spouse in [place]. 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 Spiritual care concerns: No Meds Home Medications and Allergies Home Medications Medication Instructions Recorded Confirmed Type albuterol sulfate 90 mcg/actuation 1 inh inhalation Q4H PRN shortness 12/29/22 03/14/24 Rx aerosol inhaler of breath or wheezing #6.7 grams nitroglycerin 0.4 mg sublingual 0.4 mg sublingual .COMPLEX 01/28/23 03/14/24 History tablet aspirin 81 mg chewable tablet 81 mg PO DAILY 07/27/23 03/14/24 History (Aspirin Childrens) magnesium oxide 250 mg PO DAILY 07/27/23 03/14/24 History mecobalamin (vitamin B12) 2,500 2,500 mcg PO DAILY 07/27/23 03/14/24 History mcg chewable tablet metoprolol tartrate 25 mg tablet 25 mg PO BID #200 tabs 09/01/23 03/14/24 Rx rosuvastatin 40 mg tablet 40 mg PO DAILY #100 tabs 09/01/23 03/14/24 Rx lisinopril 2.5 mg tablet 2.5 mg PO DAILY #90 tabs 09/17/23 03/14/24 Rx famotidine 40 mg tablet 40 mg PO BID #180 tabs 09/24/23 03/14/24 Rx fluticasone 250 mcg-salmeterol 50 1 inh inhalation BID #60 ea 12/23/23 03/14/24 Rx mcg/dose blistr powdr for inhalation (Advair Diskus) pantoprazole 40 mg tablet,delayed 40 mg PO DAILY #90 tabs 02/03/24 03/14/24 Rx release ascorbic acid (vitamin C) 125 mg 125 mg PO DAILY 07
[2024-03-14 07:42] VITALS: BP 127/65; PULSE 66; RESP 20; O2SAT 96
[2024-03-14 07:52] VITALS: BP 122/68; PULSE 68; RESP 18; O2SAT 97
[2024-03-14 08:02] VITALS: BP 146/75; PULSE 64; RESP 18; O2SAT 97
== END 2024-03-14 08:12 | disposition home or self-care (01) ==
PROVIDERS: PCP Family Medicine; Visit Provider Internal Medicine Gastroenterology
PROC: 0DJ08ZZ Inspection of Upper Intestinal Tract, Via Natural or Artificial Opening Endoscopic (ICD-10-PCS; CPT 43235; principal; 2024-03-14 07:30)
DX: Z09 Encounter for follow-up examination after completed treatment for conditions other than malignant neoplasm (principal); Z87.11 Personal history of peptic ulcer disease; I71.40 Abdominal aortic aneurysm, without rupture, unspecified; K21.9 Gastro-esophageal reflux disease without esophagitis; E78.5 Hyperlipidemia, unspecified; I12.9 Hypertensive chronic kidney disease with stage 1 through stage 4 chronic kidney disease, or unspecified chronic kidney disease; N18.32 Chronic kidney disease, stage 3b; R73.03 Prediabetes; I25.10 Atherosclerotic heart disease of native coronary artery without angina pectoris; J44.9 Chronic obstructive pulmonary disease, unspecified; M19.90 Unspecified osteoarthritis, unspecified site; Z95.1 Presence of aortocoronary bypass graft; Z95.5 Presence of coronary angioplasty implant and graft; Z87.891 Personal history of nicotine dependence; Z79.51 Long term (current) use of inhaled steroids; Z79.82 Long term (current) use of aspirin
CPT/HCPCS: 43235; J2704; J7120

== ENCOUNTER 2025-03-20 07:01 | Outpatient (CLI) | payer MEDICARE, SELFPAY ==
--- NOTE | ~2025-03-20 | US_ITS ---
Exam: US aorta - 03/20/2025 7:20 CDT History: 79 years old Male with I71.43 - Infrarenal abdominal aortic aneurysm, without ru... Technique: Sonography of the abdominal aorta and proximal common iliac arteries was performed. Color Doppler was used. Comparison: None available. Findings: Infrarenal abdominal aorta measurements 4.0 x 3.5 cm. The right common iliac artery measures 1.8 cm. The left common iliac artery measures 1.8 cm. IMPRESSION: 4 cm infrarenal abdominal aortic aneurysm. Reviewed, dictated and finalized at location A.
--- OUTSIDE RECORDS SUMMARY | 2025-03-20 07:05 | XMS_ITS | Referral Summary ---
Author Organization [facility] [place] [address] Address [address] [place] [address] Care Team Providers Care Steam Box Tender Name Role Phone Austin Mitchell MD Primary Care Provider [phone] Allergies Active Allergy Reactions Criticality Noted Date Comments Meperidine Medications aspirin 81 mg tablet take 1 tablet by oral route every day 0 0 3 Active simvastatin (ZOCOR) 40 mg tablet take 1 tablet by oral route every day at bedtime 0 0 3 Active acetaminophen (TYLENOL EX STR RAPID RELEASE) 500 mg tablet take 1 Tablet (500MG) by oral route 3 times every day 0 2 Active vitamin E (AQUASOL E) 200 unit capsule 0 0 3 Active ascorbic acid, vitamin C, (VITAMIN C) 1,000 mg CR tablet 1,000 mg. 0 0 3 Active cyanocobalamin (vitamin B-12) 1,000 mcg tablet take 2 by Oral route every day 0 0 3 Active ranitidine (ZANTAC) 150 mg capsule take 1 capsule by oral route 2 times every day 0 0 3 Active metoprolol (LOPRESSOR) 25 mg tablet take 1 Tablet by oral route 2 times every day 0 0 3 Active lisinopril (PRINIVIL,ZEST RIL) 10 mg tablet take 1 tablet by oral route every day 0 0 4 Active fluticasone-sa lmeterol (ADVAIR DISKUS) 250-50 mcg/dose diskus inhaler inhale 1 puff by inhalation route 2 times every day in the morning and evening approximately 12 hours apart 0 0 4 Active nitroglycerin (NITROSTAT) 0.[address] 1 tablet by sublingual route at the 1st sign of attack; may repeat every 5 min until relief; if pain persists after 3 tablets in 15 min, prompt medical attention is recommended 0 0 5 Active meloxicam (MOBIC) 15 mg tablet take 1 tablet by oral route every day 0 0 5 Active quinapril (ACCUPRIL) 10 mg tablet take 1 tablet (10MG) by oral route every day 90 3 2 Active nitroglycerin (NITROMIST) 400 mcg/spray aerosol,spray place 1 spray (0.4MG) by translingual route onto or under the tongue at the first sign of an attack; no more than 3 sprays are recommended within a 15 minute period. 1 1 2 Active aspirin (ASPIRIN CHILDRENS) 81 mg chewable tablet chew 1 tablet (81MG) by oral route every day 0 2 Active metoprolol (LOPRESSOR) 25 mg tablet take 0.5 Tablet (12.5MG) by oral route 2 times every day 180 3 2 Active ascorbic acid, vitamin C, (VITAMIN C) 1,000 mg CR tablet 1,000 mg. 0 2 Active simvastatin (ZOCOR) 40 mg tablet take 1 tablet (40MG) by oral route every day at bedtime 90 3 2 Active cyanocobalamin -cobamamide (B12) 5,000-100 mcg lozenge 0 2 Active acetaminophen (TYLENOL EX STR RAPID RELEASE) 500 mg tablet take 1 Tablet (500MG) by oral route 3 times every day 0 2 Active vitamin E (AQUASOL E) 200 unit capsule 0 2 Active clopidogrel (PLAVIX) 75 mg tablet take 1 tablet (75MG) by oral route every day 90 3 2 Active Active Problems Problem Noted Date Diagnosed Date Impaired glucose tolerance 09/24/2015 Overview (12/04/2016): Glucose intolerance (impaired glucose tolerance) Benign essential hypertension 09/11/2014 Overview (12/04/2016): Benign essential hypertension Coronary bypass graft finding 09/11/2014 Overview (12/04/2016): Coronary bypass graft finding Abdominal aortic aneurysm (AAA) 09/11/2014 Overview (12/04/2016): Abdominal aortic aneurysm Pure hypercholesterolemia 09/11/2014 Overview (12/04/2016): Pure hypercholesterolemia Coronary arteriosclerosis in [place] artery 09/11 Overview (12/04/2016): Coronary arteriosclerosis in [place] artery Social History Tobacco Use Types Packs/Day Years Used Date Smoking Tobacco: Heavy Smoker Cigarettes Last attempted t o quit: 08/30/1997 Comments:Smoking History Pac ks/day: 1 Packs Alcohol Use Standard Drinks/Week Comments No 0 (1 standard drink = 0.6 oz pur e alcohol) Sex and Gender Information Value Date Recorded Sex Assigned at Not on file Legal Sex Male 2:07 AM RACE ENGINE BUILDER Gender Identity Not on file Sexual Orientation Not on file Last Filed Vital Signs Vital Sign Reading Time Taken Comments Blood Pressure 118/72 09/24/2015 9:38 AM RACE ENGINE BUILDER Pulse 68 09/24/2015 9:38 AM RACE ENGINE BUILDER Temperature 36.7 C (98.1 F) 02/29/2020 7:35 AM CDT Respiratory Rate - - Oxygen Saturation - - Inhaled Oxygen Concentration - - Weight 72.6 kg (160 lb) 09/24/2015 9:38 AM RACE ENGINE BUILDER Height 175.3 cm (5' 9) 09/24/2015 9:38 AM RACE ENGINE BUILDER Body Mass Index 23.63 09/24/2015 9:38 AM RACE ENGINE BUILDER Plan of Treatment Not on file Insurance MEDICARE COMMERCIAL GENERIC MEDICARE COMMERCIAL GENERIC Care Teams Steam Box Tender Relationship Specialty Start Date End Date Austin Mitchell MD [address] [place] [id number] PCP - General 09/24/15
--- OUTSIDE RECORDS SUMMARY | 2025-03-20 07:05 | XMS_ITS | Clinical Summary ---
Author Organization [facility] Address [address] [place] [address] Care Team Providers Care Tactical Response Group Officer Name Role Phone Unavailable Primary Care Provider Unavailabl e Source Comments [facility],non-owned Affiliates and Associated Physician Practices is amultiple site organization consisting of ambulatory clinics and hospital sitesin [place], [place], [place] and [place]. This disclosure is being madepursuant to the Care Everywhere program and may not contain all information available regarding this patient. Last updated 18.[facility] Allergies No known active allergies Medications * Be aware that medications may not be up to date on this document. Alwaysverify current medications with the patient. vitamin E (TOCOPHERYL) 100 UNIT capsule Take 1 Cap by mouth daily. Active vitamin B-12 100 MCG tablet Take 100 mcg by mouth daily. Active vitamin C (ASCORBIC ACID) 500 MG tablet Take 500 mg by mouth daily. Active aspirin 81 MG chew tablet Take 1 Tab by mouth daily. 30 3 10/06/2009 Active metoprolol tartrate IR (LOPRESSOR) 25 MG tablet Take 2 Tabs by mouth daily. Active simvastatin (ZOCOR) 40 MG tabletIndications :Follow-up examination, following unspecified surgery Take 1 Tab by mouth at bedtime. 180 0 10/30/2009 Active clopidogrel (PLAVIX) 75 MG tabletIndications :Follow-up examination, following unspecified surgery Take 1 Tab by mouth daily. 90 3 10/30/2009 Active Active Problems Problem Noted Date Diagnosed Date CAD (coronary artery disease) 09/26/2009 Family History Relation Name Status Comments Brother Alive Father (Age 40) MVC Mother (Age 78) Renal fail ure Sister 1 Alive Sister 2 Alive Social History Tobacco Use Types Packs/Day Years Used Date Smoking Tobacco: Former Cigarettes Q uit: 03/26/2002 Alcohol Use Standard Drinks/Week Comments No 0 (1 standard drink = 0.6 oz pur e alcohol) Sex and Gender Information Value Date Recorded Sex Assigned at Not on file Legal Sex Male 6:28 AM KILN CLEANER Gender Identity Not on file Sexual Orientation Not on file 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 Not on file Not on file Not on ashley e Last Filed Vital Signs Vital Sign Reading Time Taken Comments Blood Pressure 132/88 10/30/2009 10:05 AM KILN CLEANER Pulse 88 10/30/2009 10:05 AM KILN CLEANER Temperature 35.6 C (96.1 F) 10/06/2009 11:23 AM KILN CLEANER Respiratory Rate 24 10/06/2009 11:23 AM KILN CLEANER Oxygen Saturation 93% 10/06/2009 11:23 AM KILN CLEANER Inhaled Oxygen Concentration 32% 10/03/2009 8 :54 PM KILN CLEANER Weight 78.7 kg (173 lb 8 oz) 10/05/2009 4:50 AM KILN CLEANER Height 175.3 cm (5' 9) 10/04/2009 8:42 AM KILN CLEANER Body Mass Index 25.62 10/04/2009 8:42 AM KILN CLEANER Plan of Treatment Health Maintenance Due Date Last Done Comments MEDICARE AWV 12 MONTHS 1945 HEPATITIS C SCREENING 10/24/1964 DTAP/TDAP/TD VACCINES (1 - Tdap) 1965 PNEUMOCOCCAL VACCINE 50+ (1 of 1 - PCV) 1996 ZOSTER VACCINE (1 of 2) 1996 Respiratory Syncytial Virus (RSV) Vaccine Pt: or over 60 yrs (1 - 1-dose 75+ series) 2021 COVID-19 VACCINE (1 - 2023-2 5 season) 2024 DEPRESSION SCREENING 08/30/2024 INFLUENZA VACCINE (#1) 2025 HEPATITIS B VACCINE Aged Out No longe r eligible based on patient's age to complete this topic HIB VACCINE Aged Out No longer eligi ble based on patient's age to complete this topic HPV VACCINE Aged Out No longer eligi ble based on patient's age to complete this topic MENINGOCOCCAL (Group B) VACC INE SHARED DECISION-MAKING Aged Out No longer eligibl e based on patient's age to complete this topic MENINGOCOCCAL GROUPS A/C/Y/W VACCINE Aged Out No longer eligible b ased on patient's age to complete this topic Insurance MEDICARE MEDICARE SUPPLEMENT PAYOR GENERIC MEDICARE MEDICARE SUPPLEMENT PAYOR GENERIC MEDICARE MEDICARE SUPPLEMENT PAYOR GENERIC Advance Directives Documents on File Type Date Recorded Patient Hub [place]ander Expl anation Adv Directive/Living Will/POA 10/07/2009 12:28 PM * Full Code (Latest Code Status on File) Date Activated Date Inactivated Comments 09/30/2009 12:21 PM 10/07/2009 12:39 AM * Full Code Date Activated Date Inactivated Comments 09/26/2009 9:29 AM 09/30/2009 12:21 PM
--- OUTSIDE RECORDS SUMMARY | 2025-03-20 07:05 | XMS_ITS | Clinical Summary ---
Author Organization [facility] [address] Address [address] [place] [address] Care Team Providers Care Corrugated Box Machine Operator Name Role Phone Austin Mitchell MD Primary Care Provider Allergies Active Allergy Reactions Criticality Noted Date [...] Overview (12/04/2016): Pure hypercholesterolemia Coronary arteriosclerosis in [place] artery 09/11 Overview (12/04/2016): Coronary arteriosclerosis in [place] artery Surgical History Surgery Date Site/Laterality Comments INGUINAL HERNIA REPAIR 2010 Bilateral Inguinal Hernia Repair OTHER SURGICAL HISTORY gera. hernia repair, 2v CABG 2009, dev, appy, cataract surg Medical History Medical History Date Comments Hx Other Medical Aortic Aneurysm , Abdominal (3.5cm 02/12/14), copd Family History Medical History Relation Name Comments Other Brother 2 Pacemaker; Relation Name Status Comments Brother 1 Alive Brother 2 Social History Tobacco Use Types Packs/Day Years Used Date Smoking Tobacco: Heavy Smoker Cigarettes Last attempted t o quit: 08/30/1997 Comments:Smoking History Pac ks/day: 1 Packs Alcohol Use Standard Drinks/Week Comments No 0 (1 standard drink = 0.6 oz pur e alcohol) Sex and Gender Information Value Date Recorded Sex Assigned at Not on file Legal Sex Male 2:07 AM SENIOR SALES ENGINEER Gender Identity Not on file Sexual Orientation Not on file Obstetrics History Last Filed Vital Signs Vital Sign Reading Time Taken Comments Blood Pressure 118/72 09/24/2015 9:38 AM SENIOR SALES ENGINEER Pulse 68 09/24/2015 9:38 AM SENIOR SALES ENGINEER Temperature 36.7 C (98.1 F) 02/29/2020 7:35 AM CDT Respiratory Rate - - Oxygen Saturation - - Inhaled Oxygen Concentration - - Weight 72.6 kg (160 lb) 09/24/2015 9:38 AM SENIOR SALES ENGINEER Height 175.3 cm (5' 9) 09/24/2015 9:38 AM SENIOR SALES ENGINEER Body Mass Index 23.63 09/24/2015 9:38 AM SENIOR SALES ENGINEER Plan of Treatment Not on file Insurance MEDICARE COMMERCIAL GENERIC MEDICARE COMMERCIAL GENERIC Care Teams Corrugated Box Machine Operator Relationship Specialty Start Date End Date Austin Mitchell MD [address] [place] [id number] PCP - General 09/24/15
== END 2025-03-20 07:02 | disposition home or self-care (01) ==
PROVIDERS: PCP Family Medicine; Visit Provider Family Medicine
DX: I71.43 Infrarenal abdominal aortic aneurysm, without rupture (principal)
CPT/HCPCS: 76775